=== PATIENT | male | born 1935 | race Caucasian/White ===

== ENCOUNTER 2018-08-04 08:10 | Day surgery (SDC) | payer BC, MEDICARE ==
[2018-08-04] VITALS (12 sets, daily range): BP systolic 107–123; BP diastolic 62–76
[~2018-08-04] VITALS: Ht 180.3 cm; Wt 92.6 kg
[2018-08-04] MEDS ORDERED: fentaNYL/PF 50MCG/1 ML 2ML syringe IV ONE (09:20)
[2018-08-04] MEDS ORDERED: normal saline 1000ml 1,000 ML IV PRN (09:20)
[2018-08-04] MEDS ORDERED: MIDAZolam 1mg/ml 10ml vial IV ONE (09:20)
[2018-08-04 09:41] LABS: BASOPHILS % (AUTO) 0.5 % (0-1); EOSINOPHILS # (AUTO) 0.3 X10'3 (0-0.9); EOSINOPHILS % (AUTO) 3.1 % (0-6); HEMATOCRIT 48.1 % (42.0-52.0); HEMOGLOBIN 15.3 g/dl (14.0-17.9); LYMPHOCYTES # (AUTO) 1.6 X10'3 (1.1-4.8); LYMPHOCYTES % (AUTO) 16.8 % (21-51); MEAN CORPUSCULAR HEMOGLOBIN 28.7 PG (27.0-31.0); MEAN CORPUSCULAR HGB CONC 31.8 g/dL (33.0-36.5); MEAN CORPUSCULAR VOLUME 90.2 FL (78-98); MEAN PLATELET VOLUME 8.1 FL (7.4-10.4); MONOCYTES # (AUTO) 0.9 X10'3 (0-0.9); MONOCYTES % (AUTO) 9.4 % (2-12); NEUTROPHILS # (AUTO) 6.7 X10'3 (1.8-7.7); NEUTROPHILS % (AUTO) 70.2 % (42-75); PLATELET COUNT 183 X10'3 (140-440); RED BLOOD COUNT 5.34 X10'6 (4.70-6.10); RED CELL DISTRIBUTION WIDTH 13.8 % (11.5-14.5); WHITE BLOOD COUNT 9.5 X10'3 (4.5-11.0)
[2018-08-04 09:52] LABS: ALBUMIN 3.5 G/DL (3.4-5.0); ANION GAP 9 (8-16); BLOOD UREA NITROGEN 19 MG/DL (7-18); BUN/CREATININE RATIO 14.8 (5.4-32.0); CALCIUM 8.7 MG/DL (8.5-10.1); CHLORIDE 105 MMOL/L (99-107); CREATININE 1.28 MG/DL (0.60-1.10); GLUCOSE 90 MG/DL (70-104); MAGNESIUM 1.9 MG/DL (1.5-2.4); POTASSIUM 4.3 MMOL/L (3.5-5.1); SODIUM 141 MMOL/L (135-145); TOTAL CARBON DIOXIDE 27.4 MMOL/L (24-32); eGFR 54 ML/MIN
[2018-08-04 09:54] LABS: INR 1.1 INR; PROTHROMBIN TIME 11.1 SECONDS (9.0-12.0)
[2018-08-04] MEDS ORDERED: ESCI10TA PO (11:44)
[2018-08-04] MEDS ORDERED: TRAZ-218 PO (11:44)
[2018-08-04] MEDS ORDERED: AMIO200T40 PO (11:44)
[2018-08-04] MEDS ORDERED: APIX5TAB3 PO (11:44)
[2018-08-04] MEDS ORDERED: METO1TAB25 PO (11:44)
[2018-08-04] MEDS ORDERED: EZET1TAB43 PO (11:44)
[2018-08-04] MEDS ORDERED: LEVO75TA PO (11:44)
[2018-08-04] MEDS ORDERED: MULT-955 PO (11:46)
== END 2018-08-04 12:00 | disposition home or self-care (01) ==
LOC: SSTAY O 08:10
PROVIDERS: ATTEND Internal Medicine Cardiovascular Disease
DX: I48.91 Unspecified atrial fibrillation (principal)
CPT/HCPCS: 36415; 80048; 83735; 85025; 85610; 92960; 94760; J2250; J3010; 93005

== ENCOUNTER 2020-05-09 07:20 | Day surgery (SDC) | payer BC ==
[~2020-05-09] VITALS: Ht 180.3 cm; Wt 89.0 kg
[2020-05-09] VITALS (13 sets, daily range): BP systolic 109–148; BP diastolic 66–118
[~2020-05-09 07:20] MED LIST: AMIO200T61 PO; APIX5TAB3 PO; ESCI10TA PO; EZET1TAB19 PO; LEVO75TA PO; METO1TAB25 PO; MULT-955 PO; TRAZ-251 PO
[2020-05-09] MEDS ORDERED: DOFE250C (07:58)
[2020-05-09] MEDS ORDERED: METO-384 PO (07:58)
[2020-05-09] MEDS ORDERED: PSYL575P22 PO (07:58)
[2020-05-09 08:10] LABS: BASOPHILS # (AUTO) 0.1 X10'3 (0-0.2); BASOPHILS % (AUTO) 0.6 % (0-1); EOSINOPHILS # (AUTO) 0.4 X10'3 (0-0.9); HEMATOCRIT 47.9 % (42.0-52.0); HEMOGLOBIN 15.9 g/dl (14.0-17.9); LYMPHOCYTES # (AUTO) 1.6 X10'3 (1.1-4.8); LYMPHOCYTES % (AUTO) 16.3 % (21-51); MEAN CORPUSCULAR HEMOGLOBIN 28.9 PG (27.0-31.0); MEAN CORPUSCULAR HGB CONC 33.3 g/dL (33.0-36.5); MEAN CORPUSCULAR VOLUME 86.9 FL (78-98); MEAN PLATELET VOLUME 7.5 FL (7.4-10.4); MONOCYTES # (AUTO) 1.1 X10'3 (0-0.9); MONOCYTES % (AUTO) 11.5 % (2-12); NEUTROPHILS # (AUTO) 6.5 X10'3 (1.8-7.7); NEUTROPHILS % (AUTO) 67.6 % (42-75); PLATELET COUNT 222 X10'3 (140-440); RED BLOOD COUNT 5.51 X10'6 (4.70-6.10); RED CELL DISTRIBUTION WIDTH 14.5 % (11.5-14.5); WHITE BLOOD COUNT 9.6 X10'3 (4.5-11.0)
[2020-05-09] MEDS ORDERED: MIDAZolam 1mg/ml 10ml vial IV ONE (08:10)
[2020-05-09] MEDS ORDERED: fentaNYL/PF 50MCG/1 ML 2ML syringe IV ONE (08:10)
[2020-05-09 08:19] LABS: ANION GAP 10 (8-16); BLOOD UREA NITROGEN 15 MG/DL (7-18); BUN/CREATININE RATIO 16.3 (5.4-32.0); CHLORIDE 105 MMOL/L (99-107); CREATININE 0.92 MG/DL (0.60-1.10); GLUCOSE 88 MG/DL (70-104); MAGNESIUM 1.7 MG/DL (1.5-2.4); POTASSIUM 3.8 MMOL/L (3.5-5.1); SODIUM 144 MMOL/L (135-145); TOTAL CARBON DIOXIDE 29.3 MMOL/L (24-32); eGFR 78 ML/MIN
== END 2020-05-09 11:40 | disposition home or self-care (01) ==
LOC: SSTAY O 07:20
PROVIDERS: ATTEND Internal Medicine Cardiovascular Disease
DX: I48.0 Paroxysmal atrial fibrillation (principal); I25.10 Atherosclerotic heart disease of native coronary artery without angina pectoris; Z95.1 Presence of aortocoronary bypass graft; I48.92 Unspecified atrial flutter; I42.9 Cardiomyopathy, unspecified; I10 Essential (primary) hypertension; E78.5 Hyperlipidemia, unspecified; E03.9 Hypothyroidism, unspecified; Z85.46 Personal history of malignant neoplasm of prostate; Z95.2 Presence of prosthetic heart valve; Z79.01 Long term (current) use of anticoagulants; Z79.899 Other long term (current) drug therapy; Z98.890 Other specified postprocedural states; Z88.8 Allergy status to other drugs, medicaments and biological substances; Z82.49 Family history of ischemic heart disease and other diseases of the circulatory system
CPT/HCPCS: 36415; 80048; 83735; 85025; 85610; 92960; 93005; 94799; J2250; J3010

== ENCOUNTER 2020-07-11 12:27 | Day surgery (SDC) | payer BC ==
[2020-07-11] VITALS (8 sets, daily range): BP systolic 111–134; BP diastolic 54–91
[~2020-07-11] VITALS: Ht 177.8 cm; Wt 88.9 kg
[~2020-07-11 12:27] MED LIST changes: -AMIO200T61 PO; +DOFE250C; -ESCI10TA PO; -EZET1TAB19 PO; +METO-384 PO; -METO1TAB25 PO; +PSYL575P22 PO; -TRAZ-251 PO
[2020-07-11] MEDS ORDERED: normal saline 1000ml 1,000 ML IV SCH (13:00)
[2020-07-11] MEDS ORDERED: ceFAZolin 2gm in dextrose, iso 50 ML IV ONE (13:00)
[2020-07-11] MEDS ORDERED: vancomycin 1,500 MG in NS 300ml IV soln IV ONE (13:00)
[2020-07-11] MEDS ORDERED: midazolam 2 mg/2 ml injection ONE ×3 (13:08→14:17)
[2020-07-11] MEDS ORDERED: fentaNYL/PF 50MCG/1 ML 2ML syringe ONE ×2 (13:08→14:35)
[2020-07-11] MEDS ORDERED: proCHLORperazine 10 MG/2 ml inj ONE (13:08)
[2020-07-11] MEDS ORDERED: LIDOcaine 1% W/epiNEPHrine 1:100,000 20ml vial ONE (13:09)
[2020-07-11 13:29] LABS: BASOPHILS # (AUTO) 0.1 X10'3 (0-0.2); BASOPHILS % (AUTO) 0.8 % (0-1); EOSINOPHILS # (AUTO) 0.4 X10'3 (0-0.9); EOSINOPHILS % (AUTO) 3.6 % (0-6); HEMATOCRIT 47.5 % (42.0-52.0); HEMOGLOBIN 15.5 g/dl (14.0-17.9); LYMPHOCYTES # (AUTO) 1.4 X10'3 (1.1-4.8); MEAN CORPUSCULAR HEMOGLOBIN 28.4 PG (27.0-31.0); MEAN CORPUSCULAR HGB CONC 32.7 g/dL (33.0-36.5); MEAN PLATELET VOLUME 7.4 FL (7.4-10.4); MONOCYTES % (AUTO) 9.1 % (2-12); NEUTROPHILS # (AUTO) 7.9 X10'3 (1.8-7.7); NEUTROPHILS % (AUTO) 73.5 % (42-75); PLATELET COUNT 202 X10'3 (140-440); RED BLOOD COUNT 5.46 X10'6 (4.70-6.10); RED CELL DISTRIBUTION WIDTH 14.9 % (11.5-14.5); WHITE BLOOD COUNT 10.7 X10'3 (4.5-11.0)
[2020-07-11 13:36] LABS: ALBUMIN 3.8 G/DL (3.4-5.0); ANION GAP 7 (8-16); BLOOD UREA NITROGEN 24 MG/DL (7-18); BUN/CREATININE RATIO 21.4 (5.4-32.0); CALCIUM 8.9 MG/DL (8.5-10.1); CHLORIDE 106 MMOL/L (99-107); CREATININE 1.12 MG/DL (0.60-1.10); GLUCOSE 110 MG/DL (70-104); MAGNESIUM 1.9 MG/DL (1.5-2.4); POTASSIUM 4.6 MMOL/L (3.5-5.1); SODIUM 142 MMOL/L (135-145); TOTAL CARBON DIOXIDE 28.9 MMOL/L (24-32); eGFR 62 ML/MIN
[2020-07-11] MEDS ORDERED: metoprolol tartrate 1mg/ml inj IV ONE (14:04)
[2020-07-11] MEDS ORDERED: vancomycin 1,000mg inj ONE (14:10)
== END 2020-07-11 16:50 | disposition home or self-care (01) ==
LOC: SSTAY O 12:27
PROVIDERS: ATTEND Internal Medicine Cardiovascular Disease
DX: I49.5 Sick sinus syndrome (principal); I48.0 Paroxysmal atrial fibrillation; I25.10 Atherosclerotic heart disease of native coronary artery without angina pectoris; I44.0 Atrioventricular block, first degree; Z95.1 Presence of aortocoronary bypass graft; I35.0 Nonrheumatic aortic (valve) stenosis; Z95.2 Presence of prosthetic heart valve; I10 Essential (primary) hypertension; E78.5 Hyperlipidemia, unspecified; E03.9 Hypothyroidism, unspecified; Z85.46 Personal history of malignant neoplasm of prostate; Z85.118 Personal history of other malignant neoplasm of bronchus and lung; Z79.01 Long term (current) use of anticoagulants; Z79.899 Other long term (current) drug therapy; Z88.8 Allergy status to other drugs, medicaments and biological substances
CPT/HCPCS: 33208; 36415; 71045; 80048; 83735; 85025; 85610; 92960; 93005; 99152; 99153; C1785; C1894; C1898; J0780; J2250; J3010; J3370; J7030; J7040; 33217; A4565; A4620; A6258; J3490

== ENCOUNTER 2020-07-18 15:59 | Emergency (ER) | payer BC ==
[~2020-07-18] VITALS: Ht 177.8 cm; Wt 89.1 kg
[~2020-07-18 15:59] MED LIST changes: -MULT-955 PO
[2020-07-18] MEDS ORDERED: diltiazem 5mg/ml 5ml inj. IV ONE (16:30)
[2020-07-18 17:09] VITALS: BP 116/92
[2020-07-18 17:16] LABS: BASOPHILS # (AUTO) 0.1 X10'3 (0-0.2); BASOPHILS % (AUTO) 0.5 % (0-1); EOSINOPHILS # (AUTO) 0.4 X10'3 (0-0.9); EOSINOPHILS % (AUTO) 3.5 % (0-6); HEMOGLOBIN 14.6 g/dl (14.0-17.9); LYMPHOCYTES # (AUTO) 1.6 X10'3 (1.1-4.8); LYMPHOCYTES % (AUTO) 14.2 % (21-51); MEAN CORPUSCULAR HEMOGLOBIN 28.7 PG (27.0-31.0); MEAN CORPUSCULAR HGB CONC 33.2 g/dL (33.0-36.5); MEAN CORPUSCULAR VOLUME 86.6 FL (78-98); MEAN PLATELET VOLUME 7.5 FL (7.4-10.4); MONOCYTES # (AUTO) 1.3 X10'3 (0-0.9); MONOCYTES % (AUTO) 11.6 % (2-12); NEUTROPHILS # (AUTO) 7.7 X10'3 (1.8-7.7); NEUTROPHILS % (AUTO) 70.2 % (42-75); PLATELET COUNT 190 X10'3 (140-440); RED BLOOD COUNT 5.09 X10'6 (4.70-6.10); RED CELL DISTRIBUTION WIDTH 15.3 % (11.5-14.5); WHITE BLOOD COUNT 10.9 X10'3 (4.5-11.0)
[2020-07-18 17:27] LABS: ALANINE AMINOTRANSFERASE 25 U/L (12-78); ALBUMIN 3.5 G/DL (3.4-5.0); ALBUMIN/GLOBULIN RATIO 0.9 (1.1-1.5); ALKALINE PHOSPHATASE 112 IU/L (46-116); ANION GAP 7 (8-16); ASPARTATE AMINO TRANSFERASE 21 U/L (10-37); BILIRUBIN,TOTAL 0.4 MG/DL (0.1-1.0); BLOOD UREA NITROGEN 24 MG/DL (7-18); BUN/CREATININE RATIO 22.2 (5.4-32.0); CALCIUM 8.7 MG/DL (8.5-10.1); CHLORIDE 107 MMOL/L (99-107); CREATININE 1.08 MG/DL (0.60-1.10); GLUCOSE 92 MG/DL (70-104); POTASSIUM 4.1 MMOL/L (3.5-5.1); SODIUM 141 MMOL/L (135-145); TOTAL CARBON DIOXIDE 27.1 MMOL/L (24-32); TOTAL PROTEIN 7.4 G/DL (6.4-8.2); eGFR 65 ML/MIN
[2020-07-18] MEDS ORDERED: diltiazem CD 120mg capsule (once-daily) PO ONE (17:40)
[2020-07-18] MEDS ORDERED: DILT-88 PO (17:45)
== END 2020-07-18 18:00 | disposition home or self-care (01) ==
LOC: ER 16:00
DX: I48.91 Unspecified atrial fibrillation (principal); Z95.0 Presence of cardiac pacemaker; Z79.899 Other long term (current) drug therapy
CPT/HCPCS: 36415; 80053; 83735; 85025; 93005; 96374; 99291; J3490

== ENCOUNTER 2022-03-14 00:20 | Emergency (ER) | payer BC ==
[~2022-03-14] VITALS: Ht 177.8 cm; Wt 81.8 kg
[~2022-03-14 00:20] MED LIST changes: +DILT-88 PO
[2022-03-14 02:14] LABS: CLARITY,URINE BLOODY (Clear); COLOR,URINE RED (Yellow); UA COLLECTION TYPE NON-SPECIFIED
[2022-03-14 02:20] LABS: BACTERIA,URINE NONE SEEN /HPF (Neg); RBC,URINE TNTC /HPF (0-2); SQUAMOUS EPITHELIAL CELL,UR NONE SEEN /LPF (FEW); WBC,URINE NONE SEEN /HPF (0-4)
== END 2022-03-14 04:10 | disposition left against medical advice (07) ==
LOC: ER 00:20
DX: R31.9 Hematuria, unspecified (principal); Z53.21 Procedure and treatment not carried out due to patient leaving prior to being seen by health care provider
CPT/HCPCS: 81001